=== PATIENT | male | born 2000 | race Hispanic/Latino ===

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

== ENCOUNTER 2022-04-17 14:32 | Emergency (ER) | payer OTHER ==
[2022-04-17] MEDS ORDERED: Boostrix 0.5 ML (Tdap) VIAL (>/=7 yrs of age) ONE (15:54)
[2022-04-17] MEDS ORDERED: CEFAZOLIN 1 GM VIAL ONE ×2 (16:09→16:11)
[2022-04-17] MEDS ORDERED: Lidocaine 1% PF 5 ML VIAL ONE (16:24)
== END 2022-04-17 18:18 | disposition home or self-care (01) ==
LOC: ERS 14:32
DX: S62.612B Displaced fracture of proximal phalanx of right middle finger, initial encounter for open fracture (principal); W01.0XXA Fall on same level from slipping, tripping and stumbling without subsequent striking against object, initial encounter
CPT/HCPCS: 12001; 26725; 90471; 90715; 96374; J0690

== ENCOUNTER 2022-04-18 09:48 | Day surgery (SDC) | payer OTHER ==
[2022-04-18] MEDS ORDERED: Sodium Chloride 0.9% 100 ML ONE (15:00)
[2022-04-18] MEDS ORDERED: CEFAZOLIN 2 GM VIAL ONE (15:00)
[2022-04-18] MEDS ORDERED: Dexmedetomidine 200 MCG/2 ML VIAL ONE (15:12)
[2022-04-18] MEDS ORDERED: fentaNYL Citrate/PF 100 MCG/2 ML SYRINGE ONE (15:12)
[2022-04-18] MEDS ORDERED: Glycopyrrolate 0.2 MG/ML 5 ML SYRINGE ONE (15:37)
[2022-04-18] MEDS ORDERED: ePHEDrine 50 MG/ML VIAL ONE (15:37)
[2022-04-18] MEDS ORDERED: Ondansetron PF 4 MG/2 ML Vial ONE (15:37)
[2022-04-18] MEDS ORDERED: PROPOFOL 200 MG/20 ML VIAL ONE (15:37)
[2022-04-18] MEDS ORDERED: Ketorolac Tromethamine 30 MG/ML VIAL ONE (15:37)
[2022-04-18] MEDS ORDERED: Dexamethasone 20 MG/5 ML VIAL ONE (15:37)
[2022-04-18] MEDS ORDERED: Bupivacaine PF 0.5% 30 ML VIAL ONE (16:01)
[2022-04-18] MEDS ORDERED: Bacitracin Zinc Ointment 30 gm TUBE ONE (16:01)
[2022-04-18] MEDS ORDERED: Neomycin-Polymyxin 1 ML AMP ONE (16:06)
== END 2022-04-18 18:45 | disposition home or self-care (01) ==
LOC: ERS 09:48 → SDC 09:48 → EDSTATUS 10:49 → SDC 18:45
PROVIDERS: ATTEND Orthopaedic Surgery Hand Surgery
PROC: 0PBT0ZZ Excision of Right Finger Phalanx, Open Approach (ICD-10-PCS; principal; 2022-04-18)
PROC: 0PST04Z Reposition Right Finger Phalanx with Internal Fixation Device, Open Approach (ICD-10-PCS; principal; 2022-04-18)
DX: S67.192A Crushing injury of right middle finger, initial encounter (principal); S62.612A Displaced fracture of proximal phalanx of right middle finger, initial encounter for closed fracture; X58.XXXA Exposure to other specified factors, initial encounter
CPT/HCPCS: C1713; J1100; J1885; J2405; J2704; J3490; S0020

== ENCOUNTER 2023-10-18 17:10 | Emergency (ER) | payer SELFPAY ==
[2023-10-18 18:03] LABS: #Basophils 0.03 10x3/uL (0.0-0.2); #Eosinphils Less than 0.03 10x3/uL (0.0-0.7); %Basophils 0.2 % (0.0-1.0); %Eosinophils 0.1 % (0.0-10.0); %Lymphocytes 7.1 % (21.0-51.0); Hematocrit 46.7 % (42.0-52.0); Hemoglobin 16.2 g/dL (14.0-18.0); Mean Corpuscular HGB CONC 34.7 g/dL (32.0-36.0); Mean Corpuscular Hemoglobin 30.9 pg (27.0-31.0); Mean Corpuscular Volume 89.1 fL (78.0-98.0); Platelet Count 196 10x3/uL (130-400); RBC Distribution Width 12.1 % (11.5-14.5); Red Blood Cell (RBC) Count 5.24 mill/uL (4.70-6.10)
[2023-10-18 18:22] LABS: Anion Gap 16 mmol/L (10-20); Globulin 3.1 g/dL (2.4-3.5)
[2023-10-18 18:26] LABS: ALT (SGPT) 17 U/L (8-55); AST (SGOT) 21 U/L (5-34); Albumin 4.6 g/dL (3.5-5.0); Alkaline Phosphatase 66 U/L (40-110); BUN (Urea Nitrogen) 10 mg/dL (8.9-20.6); Bilirubin, Total 0.7 mg/dL (0.2-1.2); Calc. Creatinine Clearance 0 mL/min (70-130); Calcium 9.7 mg/dL (7.8-10.44); Carbon Dioxide 22 mmol/L (22-29); Chloride 106 mmol/L (98-107); Estimated GFR 106; Glucose 109 mg/dL (70-105); Lipase 14 U/L (8-78); Potassium 4.6 mmol/L (3.5-5.1); Protein, Total 7.7 g/dL (6.0-8.3); Sodium 139 mmol/L (136-145)
[2023-10-18 19:43] LABS: Bacteria/HPF None Seen HPF (None Seen); Bilirubin Negative (Negative); Blood, Urine Negative (Negative); CAUTI Indications for Culture Pelvic or flank pain; Clarity Extra Turbid (Clear); Glucose, Urine (Dipstick) Normal (Negative); Ketone, Urine Negative (Negative); Leukocyte Negative Leu/uL (Negative); Nitrite Negative (Negative); Protein, Urine (Dipstick) 30 mg/dL (Neg-Trace); RBC/HPF 0-3 HPF (0-3); Specific Gravity, Urine 1.034 (1.002-1.036); Squamous Epithelial None Seen HPF (0-3); Urobilinogen Normal mg/dL (Less than 2); WBC/HPF 0-3 HPF (0-3)
[2023-10-18 19:44] LABS: Urine Culture Reflex No No
== END 2023-10-18 20:55 | disposition home or self-care (01) ==
LOC: ERS 17:10
DX: R11.2 Nausea with vomiting, unspecified (principal); R51.9 Headache, unspecified; F17.290 Nicotine dependence, other tobacco product, uncomplicated
CPT/HCPCS: 36415; 80053; 81001; 83690; 85025; 96365; 96375; J1100; J1885; J2765

== ENCOUNTER 2025-06-21 10:42 | Emergency (ER) | payer OTHER, SELFPAY ==
[2025-06-21] MEDS ORDERED: Lidocaine 1% PF 5 ML VIAL ONE (11:19)
== END 2025-06-21 11:54 | disposition home or self-care (01) ==
LOC: ERS 10:42
DX: L03.012 Cellulitis of left finger (principal); F17.290 Nicotine dependence, other tobacco product, uncomplicated